=== PATIENT | female | born 1995 | race Caucasian/White ===

== ENCOUNTER 2018-11-23 17:59 | Emergency (ER) | payer SELFPAY ==
[~2018-11-23] VITALS: Ht 157.5 cm; Wt 45.4 kg
--- OUTSIDE RECORDS SUMMARY | 2018-11-23 18:02 | XMS REPORT | Clinical Summary ---
Author Author [facility] Organization [facility] Address Unknown Phone Unavailable Care Team Providers Care Coordinator Of Online Programs Name Role Phone Asked, No Pcp PCP Unavailable Allergies No Known Allergies Medications End Date Status Medication Sig Dispensed Refills Start Date Active Take 1 tablet 0 vit,[id number] 29 by mouth mg iron- 1 mg tablet per daily. tablet 01/03/2018 acetaminophen-codeine Take 1 tablet 40 tablet 0 (TYLENOL WITH CODEINE #3) by mouth 8 300-30 mg per tablet every 6 (six) hours as needed for moderate pain for up to 13 days. Active Problems Problem Noted Date S/P repeat low transverse 12/20/2017 Encounters Care Team Description Date Type Specialty Van Tomlinson MD 12/20/2017 Anesthesia Obstetrics and Gynecology Event Jamie Garcia MD DELIVERY, 12/20/2017 Surgery Obstetrics and Gynecology Jamie Garcia MD S/P repeat low transverse (Primary Dx) 12/20/2017 Hospital Obstetrics and Gynecology - Encounter 12/22/2017 Jamie Garcia MD 12/19/2017 Hospital Obstetrics Encounter after 11/22/2017 Immunizations Name Dates Previously Given Next Due Tdap 12/22/2017 Family History Medical History Relation Name Comments Diabetes Maternal Grandmother Relation Name Status Comments Maternal Grandmother Social History Date Tobacco Use Types Packs/Day Years Used Former Smoker Smokeless Tobacco: Never Used Alcohol Use Drinks/Week oz/Week Comments No Sex Assigned at Date Recorded Not on file Industry Job Start Date Occupation Not on file Not on file Not on file Travel End Travel History Travel Start No recent travel history available. Last Filed Vital Signs Time Taken Vital Sign Reading 12/22/2017 7:28 AM CDT Blood Pressure 110/67 12/22/2017 7:28 AM CDT Pulse 73 12/21/2017 8:00 PM CDT Temperature 36.8 C (98.3 F) 12/22/2017 7:28 AM CDT Respiratory Rate 16 12/21/2017 11:04 AM CDT Oxygen Saturation 97% - Inhaled Oxygen - Concentration 12/20/2017 7:29 AM CDT Weight 89.8 kg (198 lb) 12/20/2017 7:29 AM CDT Height 157.5 cm (5' 2") 12/20/2017 7:29 AM CDT Body Mass Index 36.21 Plan of Treatment Health Maintenance Due Date Last Done Comments CERVICAL CANCER SCREENING 2015 CHLAMYDIA SCREENING 06/02/2018 06/02/2017 INFLUENZA VACCINE 03/22/2019 Procedures Comments Procedure Name Priority Date/Time Associated Diagnosis HC COMPLETE BLD COUNT Routine 12/22/2017 W/AUTO DIFF 5:40 AM CDT TRANSFUSE RED BLOOD CELLS Routine 12/21/2017 12:04 PM CDT TRANSFUSE RED BLOOD CELLS Routine 12/21/2017 10:14 AM CDT SMEAR REVIEW Routine 12/21/2017 5:45 AM CDT HC COMPLETE BLD COUNT Routine 12/21/2017 W/AUTO DIFF 5:45 AM CDT ANESTHESIA EPIDURAL BLOCK Routine 12/20/2017 10:41 AM CDT Procedure Note - Van Tomlinson MD - 12/20/2017 10:41 AM CDT Epidural Block Performed by: VAN TOMLINSON Authorized by: VAN TOMLINSON Patient Location: OB Reason for Block: at surgeon's request Anesthesio logist: VAN TOMLINSON Performed by: Anesthesio logist Preprocedu re: patient identified , IV checked, site and side verified, risks and benefits discussed, procedure verified, surgical consent completed, patient position confirmed, monitors and equipment checked and pre-op evaluation completed Patient Position: Sitting Prep: ChloraPrep Monitoring : Blood pressure monitoring , continuous pulse oximetry and heart rate Approach: Midline Interspace : L3-4 Injection Technique: [place] air Needle Type: Tuohy Needle Gauge: 17 Loss of resistance : 7 cm Catheter at Skin Depth: 12 cm Test Dose: Lidocaine 1.5% with epinephrin e 1-to-200,0 00 and negative Number of Attempts: 2 Block Outcome: Patient comfortabl e, patient tolerated procedure well and no apparent complicati ons Post-proce dure: Patient returned to supine position with left lateral displaceme nt and sterile dressing applied DELIVERY, 12/20/2017 repeat 9:00 AM CDT PREPARE RBC Routine 12/19/2017 11:24 AM CDT TYPE AND SCREEN Routine 12/19/2017 11:24 AM CDT SYPHILIS TREPONEMAL IGG Routine 12/19/2017 11:24 AM CDT HEPATITIS B SURFACE Routine 12/19/2017 ANTIGEN 11:24 AM CDT HIV 1, 2 ANTIBODY Routine 12/19/2017 11:24 AM CDT HC COMPLETE BLD COUNT Routine 12/19/2017 W/AUTO DIFF 11:24 AM CDT after 11/22/2017 Results * CBC with platelet and differential (12/22/2017 5:40 AM CDT) Only the most recent of 3 results within the time period is included. WBC 9.49 4.50 - 11.00 k/uL [facility] DEPARTMENT OF PATHOLOGY AND GENOMIC MEDICINE RBC 3.32 (L) 4.20 - 5.50 m/uL [facility] DEPARTMENT OF PATHOLOGY AND GENOMIC MEDICINE HGB 9.3 (L) 12.0 - 16.0 g/dL [facility] DEPARTMENT OF PATHOLOGY AND GENOMIC MEDICINE HCT 29.1 (L) 37.0 - 47.0 % [facility] DEPARTMENT OF PATHOLOGY AND GENOMIC MEDICINE MCV 87.7 82.0 - 100.0 fL [facility] DEPARTMENT OF PATHOLOGY AND GENOMIC MEDICINE MCH 28.0 27.0 - 34.0 pg [facility] DEPARTMENT OF PATHOLOGY AND GENOMIC MEDICINE MCHC 32.0 31.0 - 37.0 g/dL [facility] DEPARTMENT OF PATHOLOGY AND GENOMIC MEDICINE RDW - SD 45.6 37.0 - 55.0 fL [facility] DEPARTMENT OF PATHOLOGY AND GENOMIC MEDICINE MPV 10.4 8.8 - 13.2 fL [facility] DEPARTMENT OF PATHOLOGY AND GENOMIC MEDICINE Platelet count 236 150 - 400 k/uL [facility] DEPARTMENT OF PATHOLOGY AND GENOMIC MEDICINE Nucleated RBC 0.00 /100 WBC [facility] DEPARTMENT OF PATHOLOGY AND GENOMIC MEDICINE Neutrophils 72.7 (H) 39.0 - 69.0 % [facility] DEPARTMENT OF PATHOLOGY AND GENOMIC MEDICINE Lymphocytes 18.9 (L) 25.0 - 45.0 % [facility] DEPARTMENT OF PATHOLOGY AND GENOMIC MEDICINE Monocytes 5.5 0.0 - 10.0 % [facility] DEPARTMENT OF PATHOLOGY AND GENOMIC MEDICINE Eosinophils 2.2 0.0 - 5.0 % [facility] PATHOLOGY AND GENOMIC MEDICINE Basophils 0.2 0.0 - 1.0 % [facility] OF PATHOLOGY AND GENOMIC MEDICINE Specimen Blood Performing Organization Address [facility] Phone Number [facility] [id number] [place] [address] [place] [address] PATHOLOGY AND [facility] * Transfuse RBC (12/21/2017 12:04 PM CDT) Only the most recent of 3 results within the time period is included. * Smear review (12/21/2017 5:45 AM CDT) Platelet slide review Amalia adequate [facility] PATHOLOGY AND GENOMIC MEDICINE Anisocytosis few [facility] PATHOLOGY AND GENOMIC MEDICINE Performing Organization Address City/[facility] Phone Number [address] [place] [phone] PATHOLOGY AND [facility] * Syphilis treponemal IgG (12/19/2017 11:24 AM CDT) Syphilis treponemal IgG Non-reactiveComment: Non-reactive [facility] DEPARTMENT OF Non-reactive: No serological PATHOLOGY AND evidence of Syphilis infection GENOMIC MEDICINE Specimen Serum Performing Organization Address City/[facility] Phone Number [facility] DEPARTMENT OF [address] [place] [phone] PATHOLOGY AND [employer] [facility] * HIV 1, 2 antibody (12/19/2017 11:24 AM CDT) HIV 1, 2 antibody Nonreactive Non-reactive [facility] DEPARTMENT OF Comment: PATHOLOGY AND Starting from November 18 2015, [employer] [facility] 4th generation HIV screening and confirmation assays are in use at [facility], consistent with the CDC-recommended algorithm. The screening test detects antibodies to HIV-1, HIV-2 and the p24 antigen. Positive screening results will be automatically reflexed to a HIV-1/HIV-2 differentiation assay. Indeterminant HIV-1 results will be further automatically reflexed to a nucleic acid test for detection of acute infection. Western blot will no longer be performed as a confirmation test. For a quick reference guide on the testing algorithm, please refer to: http://stacks.cdc.gov/view/cdc /18563. Specimen Blood Performing Organization Address [facility]/Zipcode Phone Number [address] [place] [address] PATHOLOGY AND GENOMIC MEDICINE * Hepatitis B surface antigen (12/19/2017 11:24 AM CDT) Hepatitis B surface Ag Nonreactive Non-reactive [facility] DEPARTMENT OF PATHOLOGY AND GENOMIC MEDICINE Specimen Blood Performing Organization Address [facility] Phone Number [address] [place] [address] PATHOLOGY AND GENOMIC MEDICINE * Prepare RBC (12/19/2017 11:24 AM CDT) Product name Red Blood Cells [id number] Leukored [facility] DEPARTMENT OF PATHOLOGY AND GENOMIC MEDICINE Unit number [id number] [facility] DEPARTMENT OF PATHOLOGY AND GENOMIC MEDICINE Product code [id number] [facility] DEPARTMENT OF PATHOLOGY AND GENOMIC MEDICINE Dispense status Transfused [facility] DEPARTMENT OF PATHOLOGY AND GENOMIC MEDICINE Blood expiration date [facility] DEPARTMENT OF PATHOLOGY AND GENOMIC MEDICINE Blood type code 5100 [facility] DEPARTMENT OF PATHOLOGY AND GENOMIC MEDICINE Blood type O POSITIVE [facility] DEPARTMENT OF PATHOLOGY AND GENOMIC MEDICINE Product name Red Blood Cells [id number] Leukored [facility] DEPARTMENT OF PATHOLOGY AND GENOMIC MEDICINE Unit number [id number] [facility] DEPARTMENT OF PATHOLOGY AND GENOMIC MEDICINE Product code [id number] [facility] DEPARTMENT OF PATHOLOGY AND GENOMIC MEDICINE Dispense status Transfused [facility] DEPARTMENT OF PATHOLOGY AND GENOMIC MEDICINE Blood expiration date [facility] DEPARTMENT OF PATHOLOGY AND GENOMIC MEDICINE Blood type code 5100 [facility] DEPARTMENT OF PATHOLOGY AND GENOMIC MEDICINE Blood type O POSITIVE [facility] DEPARTMENT OF PATHOLOGY AND GENOMIC MEDICINE Performing Organization Address [facility] Phone Number [address] [place] [address] PATHOLOGY AND GENOMIC MEDICINE * Type and screen (12/19/2017 11:24 AM CDT) ABO grouping O [facility] DEPARTMENT OF PATHOLOGY AND GENOMIC MEDICINE Rh type POS [facility] DEPARTMENT OF PATHOLOGY AND GENOMIC MEDICINE Antibody screen NEG [facility] DEPARTMENT OF PATHOLOGY AND GENOMIC MEDICINE Specimen Blood Performing Organization Address City/State/Zipcode Phone Number [facility] [place] [address] [place] [address] PATHOLOGY AND GENOMIC MEDICINE after 11/22/2017 Insurance Payer Benefit Subscriber ID Type Phone Address Plan / Group Pledge51 [facility] xxxxxxxxx O [facility] Advance Directives Patient has advance care planning documents on file. For more information, damaris pineda contact: Sean Stovall [address] [place] [address]
--- OUTSIDE RECORDS SUMMARY | 2018-11-23 18:02 | XMS REPORT | Continuity of Care Document ---
Author Author [facility] Address Unknown Phone Unavailable Problems Problem Status Onset Date Classification Date Reported Comments Source Abdominal pain in Active 07/26/2014 Problem 03/06/2018 [facility] Medications Medication Details Route Status Patient Instructions Ordering Provider Order Date Source Allergies, Adverse Reactions, Alerts Substance Category Reaction Severity Reaction type Status Date Reported Comments Source Immunizations Immunization Date Given Site Status Last Updated Comments Source Results Order Name Results Value Reference Range Date Interpretation Comments Source BEDSIDE ULTRASOUND <p>Cliff To ResidentMD 05/19/20175:47 AM</p><p>Bedside Ultrasound</p><p>Date/Time: 05/19/2017 5:40 AM</p><p>Performed by: CLIFF TO</p><p>Authorized by: RITCHIE TORO </p><p> </p><p>Consent: </p><p>Consent obtained:Verbal</p><p>Consent given by:Patient</p><p>Indications: </p><p>Indications:Vaginal bleeding during </p><p>Comments: </p><p> Visualized IUP implanted in uterus posteriorly. CRL consistent with </p><p>8w1d. FHR 171</p> Cliff To ResidentMD 05/19/20175:47 AM Bedside Ultrasound Date/Time: 05/19/2017 5:40 AM Performed by: CLIFF TO Authorized by: RITCHIE TORO Consent: Consent obtained:Verbal Consent given by:Patient Indications: Indications:Vaginal bleeding during Comments: Visualized IUP implanted in uterus posteriorly. CRL consistent with 8w1d. FHR 171 05/19/2017 [facility] POC CO2 POC 19 mmol/L 21 - 32 05/19/[address] [facility] POC Chloride POC 106 mmol/L 98 - 107 05/19/2017 [facility] POC Potassium POC 3.7 mmol/L 3.5 - 5.1 05/19/2017 [facility] POC Sodium POC 140 mmol/L 136 - 145 05/19/2017 [facility] POC Glucose POC 86 mg/dL 74 - 106 05/19/2017 [facility] POC Urea Nitrogen POC 8 mg/dL 7 - 18 05/19/2017 [facility] POC Creatinine POC 0.5 mg/dL 0.6 - 1.3 05/19/[address] [facility] POC Calcium Ionized POC 1.12 mmol/L 1.15 - 1.29 05/19/[address] [facility] POC Hemoglobin POC 11.9 g/dL 12 - 16 05/19/[address] [facility] POC Hematocrit POC 35.0 % 37 - 47 05/19/[address] [facility] POC GFR, Estimated >60 mL/min/1.73 m2 05/19/2017 [facility] POC GFR, Estim, Afr-Am >60 mL/min/1.73 m2 05/19/2017 [facility] POC Lab Interpretation Abnormal 05/19/2017 [facility] CBC/DIFF WBC 10.4 K/uL 4.5 - 11 05/19/2017 [facility] CBC/DIFF RBC 4.04 M/uL 4.20 - 5.40 05/19/2017 Low [facility] CBC/DIFF Hemoglobin 11.3 g/dL 12 - 16 05/19/2017 Low [facility] CBC/DIFF Hematocrit 36.0 % 37 - 47 05/19/2017 [facility] CBC/DIFF MCV 89 fL 82 - 92 05/19/2017 [facility] CBC/DIFF MCH 28.0 pg 27 - 32 05/19/2017 [facility] CBC/DIFF MCHC 31.4 g/dL 32 - 36 05/19/2017 [facility] CBC/DIFF RDW 42.3 fL 36.4 - 46.3 05/19/2017 [facility] CBC/DIFF Platelet 363 K/uL 150 - 400 05/19/2017 [facility] CBC/DIFF Mean Platelet Volume 10.5 fL 9.4 - 12.4 05/19/2017 [facility] CBC/DIFF Percent NRBC 0.0 05/19/2017 [facility] CBC/DIFF Absolute NRBC 0.00 05/19/2017 [facility] CBC/DIFF Neutrophil 72.2 % 34 - 70 05/19/2017 High [facility] CBC/DIFF Lymphocyte 20.9 % 20 - 50 05/19/2017 [facility] CBC/DIFF Monocyte 5.1 % 5 - 12 05/19/2017 [facility] CBC/DIFF Eosinophil 0.9 % 0.7 - 5 05/19/2017 [facility] CBC/DIFF Basophil 0.4 % 0.1 - 1.2 05/19/2017 [facility] CBC/DIFF Pct Immat Gran 0.5 0.0 - 0.5 05/19/2017 [facility] CBC/DIFF Neutrophil, Abs 7.48 K/uL 1.56 - 6.13 05/19/2017 High [facility] CBC/DIFF Lymphocyte, Abs 2.16 K/uL 1.18 - 3.74 05/19/2017 [facility] CBC/DIFF Monocyte, Abs 0.53 K/uL 0.24 - 0.36 05/19/2017 High [facility] CBC/DIFF Eosinophil, Abs 0.09 K/uL 0.04 - 0.36 05/19/2017 [facility] CBC/DIFF Basophil, Abs 0.04 K/uL 0.01 - 0.08 05/19/2017 [facility] CBC/DIFF Absol Immat Gran 0.05 K/uL 0 - 0.03 05/19/2017 [facility] CBC/DIFF Lab Interpretation Abnormal 05/19/2017 [facility] HCG, QUANTITATIVE hCG, Quantitative 01338 mIU/mL 05/19/2017 Reference range for non- females, ages 18-62 is 1-3 mIU/mL and adult males, ages 19-67 is less than or equal to 1 mIU/mL [facility] POCT URINE DIPSTICK - Control PASSED 05/19/2017 [facility] POCT URINE DIPSTICK - POSITIVE 05/19/2017 [facility] POCT URINE DIPSTICK - Lab Interpretation Normal 05/19/2017 [facility] UA CHEMISTRIES Color Yellow 05/19/2017 [facility] UA CHEMISTRIES Clarity Hazy 05/19/2017 [facility] UA CHEMISTRIES Spec [place] 1.018 1.001 - 1.035 05/19/2017 [facility] UA CHEMISTRIES pH 6.0 5 - 8 05/19/2017 [facility] UA CHEMISTRIES Protein Negative NEG 05/19/2017 [facility] UA CHEMISTRIES Glucose Negative NEG 05/19/2017 [facility] UA CHEMISTRIES Ketone Negative NEG 05/19/2017 [facility] UA CHEMISTRIES Bilirubin Negative NEG 05/19/2017 [facility] UA CHEMISTRIES Nitrate Negative NEG 05/19/2017 [facility] UA CHEMISTRIES Urobilinogen <1.0 0.2 - 1 05/19/2017 [facility] UA CHEMISTRIES Leukocyte Negative NEG 05/19/2017 [facility] UA CHEMISTRIES Blood 2+ NEG 05/19/2017 Abnormal [facility] UA CHEMISTRIES RBC 2 /HPF 0 - 4 05/19/2017 [facility] UA CHEMISTRIES WBC 3 /HPF 0 - 5 05/19/2017 [facility] UA CHEMISTRIES Bacteria Few 05/19/2017 [facility] UA CHEMISTRIES Epithelial Cell 5 /HPF 05/19/2017 [facility] UA CHEMISTRIES Mucous Present 05/19/2017 [facility] UA CHEMISTRIES Lab Interpretation Abnormal 05/19/2017 [facility] Vital Signs Vital Sign Value Date Comments Source Systolic (mm Hg) 104 05/19/2017 [facility] Diastolic (mm Hg) 57 05/19/2017 [facility] Heart Rate 68 05/19/2017 [facility] Temperature Oral (F) 36.83 Noemi 05/19/2017 [facility] Respitory Rate 16 05/19/2017 [facility] Weight 88.451 05/19/2017 [facility] Encounters Location Location Details Encounter Type Encounter Number Reason For Visit Attending Provider ADM Date DC Date Status Source Emergency Center ([id number]) [facility] Emergency [id number] 8 weeks gestation of Vaginal bleeding before 22 weeks gestation Abdominal pain during in first trimester Ritchie Toro MD 05/19/2017 05/19/2017 [facility] Procedures Procedure Code Date Perfomer Comments Source
--- OUTSIDE RECORDS SUMMARY | 2018-11-23 18:02 | XMS REPORT | Clinical Summary ---
Author Author [facility] Organization [facility] Address Unknown Phone Unavailable Care Team Providers Care Hha Name Role Phone PCP Unavailable Allergies No Known Allergies Current Medications No known medications Active Problems Problem Noted Date Abdominal pain in 07/26/2014 Encounters Date Type Specialty Care Team Description 05/19/2017 Emergency Emergency Medicine Ritchie Toro MD 8 weeks gestation of (Primary Dx); Vaginal bleeding before 22 weeks gestation; Abdominal pain during in first trimester after 03/04/2017 Social History Tobacco Use Types Packs/Day Years Used Date Never Smoker Sex Assigned at Date Recorded Not on file Last Filed Vital Signs Vital Sign Reading Time Taken Blood Pressure 104/57 05/19/2017 6:09 AM CDT Pulse 68 05/19/2017 6:09 AM CDT Temperature 36.8 C (98.3 F) 05/19/2017 6:09 AM CDT Respiratory Rate 16 05/19/2017 6:09 AM CDT Oxygen Saturation 99% 05/19/2017 6:09 AM CDT Inhaled Oxygen - - Concentration Weight 88.5 kg (195 lb) 05/19/2017 2:57 AM CDT Height - - Body Mass Index - - Plan of Treatment Date Type Specialty Care Team Description 03/08/2018 Office Visit Family Practice Jolly Mcrae NP INITIAL; MEDICAID ACTIVE; [id number] PT [facility] BRING ID AND WIC; [place] [address] INFORMED OF LATE POLICY [phone] Health Maintenance Due Date Last Done Comments IMM MenB (1 of 2 - 2004 Bexsero 2-Dose Series) CERVICAL CANCER SCRN (3 2015 YRS) Results * BEDSIDE ULTRASOUND (05/19/2017 5:47 AM) Narrative Cliff To, ResidentKY 05/19/20175:47 AM Bedside Ultrasound Date/Time: 05/19/2017 5:40 AM Performed by: CLIFF TO Authorized by: RITCHIE TORO Consent: Consent obtained:Verbal Consent given by:Patient Indications: Indications:Vaginal bleeding during Comments: Visualized IUP implanted in uterus posteriorly. CRL consistent with 8w1d. FHR 171 * BMP POC (05/19/2017 3:49 AM) Component Value Ref Range CO2 POC 19 (L)Comment: Physician Notified 21 - 32 mmol/L Chloride POC 106 98 - 107 mmol/L Potassium POC 3.7 3.50 - 5.10 mmol/L Sodium POC 140 136 - 145 mmol/L Glucose POC 86 74 - 106 mg/dL Urea Nitrogen POC 8 7 - 18 mg/dL Creatinine POC 0.5 (L) 0.6 - 1.3 mg/dL Calcium Ionized POC 1.12 (L) 1.15 - 1.29 mmol/L Hemoglobin POC 11.9 (L) 12.0 - 16.0 g/dL Hematocrit POC 35.0 (L) 37.0 - 47.0 % GFR, Estimated >60 mL/min/1.73 m2 GFR, Estim, Afr-Am >60 mL/min/1.73 m2 Specimen Performing Laboratory MISYS * POCT URINE DIPSTICK - (05/19/2017 3:40 AM) Component Value Ref Range Control PASSED POSITIVE * HCG, QUANTITATIVE (05/19/2017 3:40 AM) Component Value Ref Range hCG, Quantitative 84,205 mIU/mL Comment: Reference range for non- females, ages 18-62 is 1-3 mIU/mL and adult males, ages 19-67 is less than or equal to 1 mIU/mL Specimen Performing Laboratory Blood MISYS * UA CHEMISTRIES (05/19/2017 3:40 AM) Component Value Ref Range Color Yellow Clarity Hazy Spec [place] 1.018 1.001 - 1.035 pH 6.0 5 - 8 Protein Negative NEG Glucose Negative NEG Ketone Negative NEG Bilirubin Negative NEG Nitrate Negative NEG Urobilinogen <1.0 0.2 - 1.0 EU/dL Leukocyte Negative NEG Blood 2+ (A) NEG RBC 2 0 - 4 /HPF WBC 3 0 - 5 /HPF Bacteria Few Epithelial Cell 5 /HPF Mucous Present Specimen Performing Laboratory Urine MISYS * CBC/DIFF (05/19/2017 3:40 AM) Component Value Ref Range WBC 10.4 4.5 - 11.0 K/uL RBC 4.04 (L) 4.20 - 5.40 M/uL Hemoglobin 11.3 (L) 12.0 - 16.0 g/dL Hematocrit 36.0 (L) 37.0 - 47.0 % MCV 89 82 - 92 fL MCH 28.0 27.0 - 32.0 pg MCHC 31.4 (L) 32.0 - 36.0 g/dL RDW 42.3 36.4 - 46.3 fL Platelet 363 150 - 400 K/uL Mean Platelet Volume 10.5 9.4 - 12.4 fL Percent NRBC 0.0 Absolute NRBC 0.00 Neutrophil 72.2 (H) 34.0 - 70.0 % Lymphocyte 20.9 20.0 - 50.0 % Monocyte 5.1 5.0 - 12.0 % Eosinophil 0.9 0.7 - 5.0 % Basophil 0.4 0.1 - 1.2 % Pct Immat Gran 0.5 0.0 - 0.5 Neutrophil, Abs 7.48 (H) 1.56 - 6.13 K/uL Lymphocyte, Abs 2.16 1.18 - 3.74 K/uL Monocyte, Abs 0.53 (H) 0.24 - 0.36 K/uL Eosinophil, Abs 0.09 0.04 - 0.36 K/uL Basophil, Abs 0.04 0.01 - 0.08 K/uL Absol Immat Gran 0.05 (H) 0.00 - 0.03 K/uL Specimen Performing Laboratory Blood MISYS after 03/04/2017
--- OUTSIDE RECORDS SUMMARY | 2018-11-23 18:03 | XMS REPORT ---
Author Author [facility] Address Unknown Phone Unavailable Care Team Providers Care Resident Manager Name Role Phone Unavailable Unavailable Problems This patient has no known problems. Allergies, Adverse Reactions, Alerts This patient has no known allergies or adverse reactions. Medications This patient has no known medications. Encounters Start Date/Time End Date/Time Encounter Type Admission Type Attending [facility] Care Department Encounter ID 2018-08-09 00:00:00 2018-08-09 00:00:00 Outpatient [facility] [id number] 2018-05-24 15:56:23 2018-05-24 15:56:23 Outpatient [facility] [id number] 2018-03-22 17:18:45 2018-03-22 17:18:45 Outpatient [facility] [id number] 2018-03-22 00:00:00 2018-03-22 00:00:00 Outpatient [facility] [id number] 2018-03-08 13:43:36 2018-03-08 13:43:36 Outpatient [facility] [id number] 2017-05-19 03:00:53 2017-05-19 03:00:53 Emergency [facility] [id number]
--- OUTSIDE RECORDS SUMMARY | 2018-11-23 18:03 | XMS REPORT | Clinical Summary ---
Author Author [facility] Organization [facility] Address Unknown Phone Unavailable Care Team Providers Care Coal Equipment Operator Name Role Phone PCP Unavailable Allergies No Known Allergies Current Medications No known medications Active Problems Problem Noted Date Abdominal pain in 07/26/2014 Encounters Date Type Specialty Care Team Description 05/19/2017 Emergency Emergency Medicine Ritchie Toro MD 8 weeks gestation of (Primary Dx); Vaginal bleeding before 22 weeks gestation; Abdominal pain during in first trimester after 03/05/2017 Social History Tobacco Use Types Packs/Day Years [...] ROAD PT [facility] WIC; [place] [address] INFORMED OF LATE POLICY [phone] Health Maintenance Due Date Last Done Comments IMM MenB (1 of 2 - 2004 Bexsero 2-Dose Series) CERVICAL CANCER SCRN (3 2015 YRS) Results * BEDSIDE ULTRASOUND (05/19/2017 5:47 AM) Narrative Cliff To, ResidentCT 05/19/20175:47 AM Bedside Ultrasound Date/Time: 05/19/2017 5:40 [...] Ref Range Color Yellow Clarity Hazy Spec [place] 1.018 1.001 - 1.035 pH 6.0 5 [...] K/uL Specimen Performing Laboratory Blood MISYS after 03/05/2017
[2018-11-23] MEDS ORDERED: CLONIDINE HCL 0.1 MG TAB PO ONE (18:45)
[2018-11-23] MEDS ORDERED: SODIUM CHLORIDE 0.9% 1000ML 1,000 ML IV SCH (19:00)
[2018-11-23] MEDS ORDERED: ZOFRAN4 MG PO (23:06)
[2018-11-23] MEDS ORDERED: ONDANSETRON ODT8 MG PO (23:13)
== END 2018-11-23 19:40 | disposition home or self-care (01) ==
LOC: FSED 17:59
DX: R19.7 Diarrhea, unspecified (principal); R10.9 Unspecified abdominal pain; K52.9 Noninfective gastroenteritis and colitis, unspecified; E86.9 Volume depletion, unspecified
CPT/HCPCS: 99283

== ENCOUNTER 2020-01-25 16:29 | Emergency (ER) | payer SELFPAY ==
[~2020-01-25] VITALS: Ht 157.5 cm; Wt 90.7 kg
[~2020-01-25 16:29] MED LIST: ONDANSETRON ODT8 MG PO; ZOFRAN4 MG PO
--- OUTSIDE RECORDS SUMMARY | 2020-01-25 16:31 | XMS REPORT | Clinical Summary ---
Author Author [facility] Organization [facility] Address Unknown Phone Unavailable Care Team Providers Care Tube Cleaner Name Role Phone PCP Unavailable Allergies No Known Allergies Medications End Date Status Medication Sig Dispensed Refills Start Date Active Condoms - Male by 12 Each 0 MiscIndications: Misc.(Non-Carlos 8 Bacterial vaginosis g; Combo Route) route as needed. 07/24/2019 Condoms - Male 12 Units by 12 Units 0 MiscIndications: Misc.(Non-Carlos 9 Encounter for g; Combo surveillance of condom Route) route. contraception Status Hospital, Clinic, or Ordered Dose Route Frequency Start End Date Other Facility Date Administered Medication Active medroxyPROGESTERone 150 mg IM EVERY 90 DAYS 07/12/20 (DEPO-PROVERA) 150 mg/mL 19 1 injection 150 mgIndications: Surveillance for Depo-Provera contraception Active Problems Problem Noted Date Abdominal pain in 07/26/2014 Encounters Care Team Description Date Type Specialty Debra Walker LVN Surveillance for Depo-Provera contracept ion (Primary Dx) 12/27/2019 Nurse Only Family Practice Liliam Stephenson NP Clemons, [place], RN Surveillance for Depo-Provera contracept ion (Primary Dx) 10/03/2019 Nurse Only Family Practice Blanca Ramirez NP Well woman exam with routine gynecologic al exam (Primary Dx); Screen for STD (sexually transmitted disease); test negative; Encounter for immunization; Depression screening; Class 1 obesity with body mass index (BMI) of 33.0 to 33.9 in adult, unspecified obesity type, unspecified whether serious comorbidity present; Surveillance for Depo-Provera contraception; Encounter for surveillance of condom contraception; Immunization due 07/12/2019 Office Visit Family Practice after 01/24/2019 Immunizations Name Administration Dates Next Due Influenza, Injectable, 07/12/2019 Quadrivalent Family History Medical History Relation Name Comments Diabetes Mother Cancer Paternal Aunt stomach Relation Name Status Comments Mother Paternal Aunt Social History Date Tobacco Use Types Packs/Day Years Used Never Smoker Smokeless Tobacco: Never Used Tobacco Cessation: Counseling Given: No Drinks/Week oz/Week Comments Alcohol Use social Yes Food Insecurity Answer Date Recorded Within the past 12 months, you worried that your Never jane e 03/08/2018 food would run out before you got money to buy more. Within the past 12 months, the food you bought Never true 03/08/2018 just didn't last and you didn't have mo osiris to get more. Sex Assigned at Date Recorded Not on file Industry Job Start Date Occupation Not on file Not on file Not on file Travel End Travel History Travel Start No recent travel history available. Date Recorded COVID-19 Exposure Response 12/27/2019 3:59 PM CDT In the last month, have you been in contact with No / Unsure someone who was confirmed or suspected to have Coronavirus / COVID-19? Last Filed Vital Signs Reading Time Taken Comments Vital Sign 128/74 10/03/2019 4:25 PM [facility] Blood Pressure 79 10/03/2019 4:25 PM [facility] Pulse 36.4 C (97.6 F) 10/03/2019 4:25 PM [facility] Temperature 16 10/03/2019 4:25 PM [facility] Respiratory Rate - - Oxygen Saturation - - Inhaled Oxygen Concentration 93.5 kg (206 lb 1.6 oz) 10/03/2019 4:25 PM [facility] Weight 161 cm (5' 3.39") 10/03/2019 4:25 PM [facility] Height 36.07 10/03/2019 4:25 PM [facility] Body Mass Index Plan of Treatment Health Maintenance Due Date Last Done Comments Cervical Cancer Scrn (3 2015 Yrs) IMM Influenza Seasonal 05/22/2020 07/12/2019 Oct to October (>/= 19 yrs) Procedures Comments Procedure Name Priority Date/Time Associated Diag nosis RPR, RFX QN RPR/CONFIRM Routine 07/12/2019 Well w roberto exam with TP 2:35 PM [facility] routine gynecologic al exam TSH Routine 07/12/2019 Well woman exam with 2:35 PM [facility] routine gynecological exam HEMOGLOBIN A1C Routine 07/12/2019 Well woman exam with 2:35 PM [facility] routine gynecological exam LIPID PANEL Routine 07/12/2019 Class 1 obesity with body 2:35 PM [facility] mass index (BMI) of 33.0 to 33.9 in adult, unspecified obesity type, unspecified whether serious comorbidity present CT,NG,TRICH VAG BY JOSE Routine 07/12/2019 Screen for STD (sexually 2:17 PM [facility] transmitted disease) POC HIV RAPID Routine 07/12/2019 Screen for STD (sexually 1/2-AFFILIATE MANUALLY 1:40 PM [facility] transmitted di sease) ENTERED POC URINE Routine 07/12/2019 test negative -AFFILIATE 1:40 PM [facility] MANUALLY ENTERED after 01/24/2019 Results * HEMOGLOBIN A1C (07/12/2019 2:35 PM [facility]) Hemoglobin A1c 5.6 4.8 - 5.6 % [facility] 01 Comment: Prediabetes: 5.7 - 6.4 Diabetes: >6.4 Glycemic control for adults with diabetes: <7.0 Specimen Blood Narrative Performed At Performed at: 01 - [facility] [address] [place] [address] 8547 Rigging Helper: Tyree Nguyen MD, Phone: [phone] Performing Organization Address City/[facility] one Number [facility] [address] [phone] [facility] 01 * TSH (07/12/2019 2:35 PM [facility]) TSH 2.360 0.450 - 4.500 uIU/mL [facility] 0 1 Specimen Blood Narrative Performed At Performed at: 01 - [facility] [address] [place] [address] 7765 Rigging Helper: Tyree Nguyen MD, Phone: [phone] Performing Organization Address City/[facility] Ph one Number [facility] [address] [place], [place] [phone] [facility] 01 * LIPID PANEL (07/12/2019 2:35 PM [facility]) Cholestrol, 143 100 - 199 mg/dL [facility] 01 Total Triglyceride 52 0 - 149 mg/dL [facility] 01 HDL 48 >39 mg/dL [facility] 01 VLDL Cholestrol 10 5 - 40 mg/dL [facility] 01 Calc LDL Cholestrol 85 0 - 99 mg/dL [facility] 01 Calc Specimen Narrative Performed At Performed at: 01 - [facility] [place] [address] 7156 Rigging Helper: Tyree Nguyen MD, Phone: [phone] Performing Organization Address [facility] one Number [facility] [address] [phone] [facility] 01 * RPR, RFX QN RPR/CONFIRM TP (07/12/2019 2:35 PM [facility]) RPR Non Reactive Non Reactive [facility] 01 Specimen Narrative Performed At Performed at: - [facility] [address] [place] [id number] Rigging Helper: Tyree Nguyen MD, Phone: [phone] Performing Organization Address [facility] one Number [facility] [address] [place], [place] [phone] [facility] 01 * CT,NG,TRICH VAG BY JOSE (07/12/2019 2:17 PM [facility]) CHLAMYDIA BY Negative Negative [facility] 01 JOSE GONOCOCCUS BY Negative Negative [facility] 01 JOSE TRICH VAG BY Negative Negative [facility] 01 JOSE Specimen Other (Specify in Comments) - Vaginal/Cervical/Endocerv ical Narrative Performed At Performed at: 01 - [facility] [address] [place], [place] [phone] Rigging Helper: Carolina Guerrero MD, [facility] ne: [phone] Performing Organization Address City/State/[facility] Ph one Number [facility] [address] [place] [address] 145 [facility] 01 * POC HIV RAPID 1/2-AFFILIATE MANUALLY ENTERED (07/12/2019 1:40 PM [facility]) RAPID HIV 1/2 Negative [facility] POC RAPID HIV 1/2 Pass [facility] Control Specimen Blood Performing Organization Address City/State/Zipcode Ph one Number [facility] * POC URINE -AFFILIATE MANUALLY ENTERED (07/12/2019 1:40 PM [facility]) POC neg Neg - Neg [facility] pass Pass - Pass [facility] Control Specimen Urine Performing Organization Address City/State/Zipcode Ph one Number [facility] after 01/24/2019 Insurance Type Payer Benefit Subscriber ID Effective Phone Address Plan / Dates Group [place] [employer] xxxxxxxxx [address] [facility] [id number] WOMEN [address] [place] [id number] CazaresDebra Kiesha Personal/F Self 1995 [phone] ([address]) [address] [place] [address]
--- OUTSIDE RECORDS SUMMARY | 2020-01-25 16:31 | XMS REPORT | Clinical Summary ---
Author Author [facility] Address Unknown Phone Unavailable Care Team Providers Care Permastone Applicator Name Role Phone Asked, No Pcp PCP Unavailable Allergies No Known Allergies Medications End Date Status Medication Sig Dispensed Refills Start Date Active Take 1 tablet 0 vit,[id number] 29 by mouth mg iron- 1 mg tablet per daily. tablet Active Problems Problem Noted Date S/P repeat low transverse 12/20/2017 Immunizations Name Administration Dates Next Due Tdap 12/22/2017 Family History Medical History Relation Name Comments Diabetes Maternal Grandmother Relation Name Status Comments Maternal Grandmother Social History Date Tobacco Use Types Packs/Day Years Used Former Smoker Smokeless Tobacco: Never Used Drinks/Week oz/Week Comments Alcohol Use No Sex Assigned at Date Recorded Not on file Industry Job Start Date Occupation Not on file Not on file Not on file Travel End Travel History Travel Start No recent travel history available. Last Filed Vital Signs Not on file Plan of Treatment Health Maintenance Due Date Last Done Comments CERVICAL CANCER SCREENING 2015 INFLUENZA VACCINE 03/22/2020 Results Not on fileafter 01/24/2019 Insurance Type Payer Benefit Subscriber ID Effective Phone Address Plan / Dates Group [employer] [place] [facility] xxxxxxxxx Sherry- [facility] Present [facility] Advance Directives For more information, please contact: [phone] Patient Epic Cupid Analyst Explanation Type Date Recorded Advance Directives, Living Will and Medical Power of Line Camera Operator
--- OUTSIDE RECORDS SUMMARY | 2020-01-25 16:32 | XMS REPORT | Continuity of Care Document ---
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 [facility] BWVXB8145-36-50 02:12:00Negative (01/21/15 9:12 PM) [facility] VVTME8833-38-89 02:12:00Negative (01/21/15 9:12 PM) [facility] ZZYCO6347-91-62 02:12:001.0[facility] HVIXK2157-65-23 02:12:00Negative (01/21/15 9:12 PM)[facility] STOOL 2015-01-22 02:12:00Trace *ABN*(01/21/15 9:12 PM)[facility] ST[facility]OL 2015-01-22 02:12:00Small *ABN*(01/21/15 9:12 PM)[facility] ST[facility] 2015-01-22 02:12:00Yellow *NA*(01/21/15 9:12 PM)[facility] ST[facility] 2015-01-22 02:12:00Trace *ABN*(01/21/15 9:12 PM)[facility] ST[facility]OL 2015-01-22 02:12:00* Test Item Value Reference Range Interpretation Comments UA pH (test code = UA pH) 7.0 1 5.0-8.0 [facility] IGUQK4609-11-10 01:03:00None Seen (01/21/15 8:03 PM) [facility] GJTQN2053-44-09 01:03:00Performed (01/21/15 8:03 PM) [facility] CJHFN8138-47-86 01:03:00Negative (01/21/15 8:03 PM) [facility] YMOBU1545-15-74 01:03:00Negative (01/21/15 8:03 PM) [facility] SABBG2040-31-81 01:03:00* Test Item Value Reference Range Interpretation Comments UA pH (test code = UA pH) 7.5 1 5.0-8.0 [facility] IVPMC9437-41-86 01:03:00Negative *NA*(01/21/15 8:03 PM) [facility] CVMBO2373-19-16 01:03:00Trace *ABN*(01/21/15 8:03 PM) [facility] YRUCA9685-08-56 01:03:00* Test Item Value Reference Range Interpretation Comments UA Spec Grav (test code = UA Spec Grav) 1.020 1 [facility] NUFAP1789-82-32 01:03:00Clear (01/21/15 8:03 PM)[facility] MVLYE4115-57-31 01:03:00Negative (01/21/15 8:03 PM)[facility] UPJXH7561-43-52 01:03:001.0[facility] STOOL 2015-01-22 01:03:00Negative (01/21/15 8:03 PM)[facility] STOOL 2015-01-22 01:03:00Yellow *NA*(01/21/15 8:03 PM)[facility]
--- NOTE | 2020-01-25 17:12 | Emergency Department Note ---
History of Present Illnes History of Present Illness Chief Complaint: aching all over chills and vomiting and diarrhea since yesterday. denies any black or bloody stools History of Present Illness This is a 24 year old female . Historian: Patient Arrival Mode: Car Flight Purser Required: No Onset (how long ago): day(s) (1 day) Location: abdominal cramps subjective fever no friends or co workers sick. Quality: crampy Severity: moderate Onset quality: sudden Duration (how long): day(s) (1) Timing of current episode: constant Progression: unchanged Chronicity: new Relieving factors: none Exacerbating factors: none Associated symptoms: denies other symptoms Treatments prior to arrival: none Past Medical/Family History Physician Review I have reviewed the patient's past medical and family history. Any updates have been documented here. Past Medical History Recent Fever: Yes (possibly) Clinical Suspicion of Infectio: Yes New/Unexplained Change in Ment: No Past Medical History: None Past Surgical History: Cholecysctectomy, Social History Smoking Cessation: Never Smoker Alcohol Use: Social Any Illegal Drug Use: No TB Exposure/Symptoms: No Physically hurt or threatened: No Other Last Tetanus: UTD Any Pre-Existing Lines (PICC,: No Is patient up to date on immun: No Review of Systems Review of Systems Constitutional: no symptoms EENTM: no symptoms Cardiovascular: no symptoms Respiratory: no symptoms Gastrointestinal: as per HPI Genitourinary: no symptoms Musculoskeletal: muscle pain Neurological: no symptoms Psychological: no symptoms Endocrine: no symptoms Hematological/Lymphatic: no symptoms Review of other systems All other systems reviewed and negative. Physical Exam Related Data Allergies: Coded Allergies: No Known Allergies (Unverified , 11/23/18) Vital signs reviewed: Yes Physical Exam CONSTITUTIONAL Constitutional: well-developed, well-nourished, obese HENT HENT: normocephalic, atraumatic EYES Eyes: PERRL, conjunctivae normal NECK PULMONARY Pulmonary: effort normal CARDIOVASCULAR Cardiovascular: regular rhythm, heart sounds normal, intact distal pulses, capillary refill normal, normal rate GASTROINTESTINAL Abdominal: soft, bowel sounds normal, other (mild tenderness no guarding or rebound no distention) GENITOURINARY Genitourinary: exam deferred SKIN Skin: warm MUSCULOSKELETAL Musculoskeletal: ROM normal NEUROLOGICAL Neurological: alert, oriented x 3, DTRs normal, no gross motor or sensory deficits PSYCHOLOGICAL Psychological: mood/affect normal, behavior normal, thought content normal, judgement normal Results Laboratory Laboratory cbc wbc 10.4 with 89 % segs ow normal chem lactic 1.08 wnl rest chem wnl. U/A small bili with s.g of greater than 1.030 preg neg Lab results reviewed: Yes Imaging Imaging results reviewed: Yes Impressions NAD Ct abd /pelvis Critical Care Time Subsequent provider I assumed direction of critical care for this patient from another provider of my specialty. Assessment & Plan Assessment & Plan Final Impression: (1) INFECTIOUS GASTROENTERITIS AND COLITIS, UNSPECIFIED Assessment & Plan will d/c home on levaquin 500 mg po daily for 10 days with zofran for n/v Depart Disposition: HOME, SELF-FCI Meds Active Scripts Ondansetron (ONDANSETRON ODT) 8 Mg Tab.rapdis, 4 MG PO Q6H PRN for nausea and vomiting, #12 TAB 0 Refills Prov:RONY LAYNE MD 11/23/18 EDUARDO SILVER MD Jan 25, 2020 17:12
[2020-01-25] MEDS ORDERED: SODIUM CHLORIDE 0.9% 1000ML 1,000 ML IV SCH (17:15)
[2020-01-25] MEDS ORDERED: ONDANSETRON HCL INJ 2MG/ML 2ML 2 MG/ML VIAL IV NR (17:30)
[2020-01-25] MEDS ORDERED: SODIUM CHLORIDE 0.9% 1000ML 1,000 ML ONE (17:35)
[2020-01-25] MEDS ORDERED: ONDANSETRON HCL INJ 2MG/ML 2ML 2 MG/ML VIAL ONE (17:35)
--- NOTE | 2020-01-25 18:45 | Diagnostic Imaging Report ---
EXAM: CT Abdomen and Pelvis WITHOUT contrast INDICATION: Diarrhea for 2 days. Abdominal pain. Fever. COMPARISON: None. TECHNIQUE: Abdomen and pelvis were scanned utilizing a multidetector helical scanner from the lung base to the pubic symphysis without administration of IV contrast. Absence of intravenous contrast decreases sensitivity for detection of focal lesions and vascular pathology. Coronal and sagittal reformations were obtained. Routine protocol was performed. IV CONTRAST: None. ORAL CONTRAST: Water RADIATION DOSE: Total DLP: 1245.38 mGy*cm Estimated effective dose: (DLP x 0.015 x size factor) mSv COMPLICATIONS: None FINDINGS: Examination limited due to the lack of contrast. LINES and TUBES: None. LOWER THORAX: Unremarkable HEPATOBILIARY: No focal hepatic lesions. No biliary ductal dilation. GALLBLADDER: There are cholecystectomy clips. SPLEEN: No splenomegaly. PANCREAS: No focal masses or ductal dilatation. ADRENALS: No adrenal nodules KIDNEYS/URETERS: No hydronephrosis. No cystic or solid mass lesions. No stones. GI TRACT: No abnormal distention, wall thickening, or evidence of bowel obstruction. Appendix is normal. PELVIC ORGANS/BLADDER: Unremarkable. LYMPH NODES: No lymphadenopathy. VESSELS: Unremarkable. PERITONEUM / RETROPERITONEUM: No free air or fluid. BONES: Unremarkable. SOFT TISSUES: Unremarkable. IMPRESSION: 1. No acute abdominal pelvic abnormality. Signed by: Dr. Walt Terry M.D. on 01/25/2020 6:42 PM
[2020-01-25] MEDS ORDERED: LEVAQUIN500 MG PO (19:16)
[2020-01-25] MEDS ORDERED: ZOFRAN4 MG SL (19:17)
[2020-01-25] MEDS ORDERED: BACTRIM DS TAB1 EACH PO (19:31)
[2020-01-25 19:47] VITALS: BP 101/56
== END 2020-01-25 19:47 | disposition home or self-care (01) ==
LOC: FSED 16:29
DX: A09 Infectious gastroenteritis and colitis, unspecified (principal); R50.9 Fever, unspecified; R10.9 Unspecified abdominal pain
CPT/HCPCS: 74176; 80048; 80076; 81003; 85025; 87040; 96374; 99284; J2405; J7030